=== PATIENT | female | born 1970 | race Caucasian/White ===

== ENCOUNTER 2024-08-19 10:43 | Outpatient (CLI) | payer OTHER, SELFPAY ==
--- NOTE | 2024-08-19 10:47 | MM_ITS ---
WS: [id number] SCREENING DIGITAL BREAST TOMOSYNTHESIS MAMMOGRAM WITH CAD HISTORY: SCREEN COMPARISON: 06/24/2014 Bilateral CC and MLO with tomosynthesis and synthetic mammography submitted. Computer aided detection analyzed. Breast composition: There are scattered areas of fibroglandular density. Focal areas of architectural distortion in the upper outer quadrant of the LEFT breast best seen on the MLO projection. I suspect this may be due to a poor compression. There is an additional area of focal globular asymmetry in th e upper outer quadrant of the RIGHT breast. Additional asymmetry noted in the RIGHT axillary tail. MM/MM scr tomosynthesis [id number] IMPRESSION: BI-RADS: 0 - Incomplete: Need additional imaging evaluation. FOLLOW UP: Need Additional Imaging RIGHT breast: Spot compression views (CC and MLO). True ML. Ultrasound to follo w if abnormality persists. Spot compression towards the RIGHT axilla in the MLO projection. LEFT breast: Spot compression views (CC and MLO). True ML. Ultrasound to follow if abnormality persists. Attempted better compression during spot imaging.
--- NOTE | 2024-08-19 10:49 | XR_ITS ---
WS: [id number] Exam: XR cervical spine 4-5V [id number] Date/Time of Exam: 08/19/2024 10:53 AM Reason For Exam: CHRONIC NECK PAIN GREATER THAN 3 MONTHS No fracture or dislocation. There is straightening. Degenerative disc thinning and spondylosis at the C5-6 level. Posterior elements are intact. Normal paraspinal soft tissues. The bony neural foramina appear to be patent. The odontoid appears normal. XR/XR cervical spine 4-5V [id number] IMPRESSION: 1. Degenerative changes at the C5-6 level and straightening. 2. No fracture or malalignment.
== END 2024-08-19 10:44 | disposition home or self-care (01) ==
LOC: RAD 10:45
PROVIDERS: PCP Family Medicine; Visit Provider Family Medicine
DX: Z12.31 Encounter for screening mammogram for malignant neoplasm of breast (principal); R92.323 Mammographic fibroglandular density, bilateral breasts; N64.89 Other specified disorders of breast; M50.322 Other cervical disc degeneration at C5-C6 level
CPT/HCPCS: 72050; 77063; 77067

== ENCOUNTER 2024-09-14 09:30 | Outpatient (CLI) | payer OTHER, SELFPAY ==
--- NOTE | 2024-09-14 09:44 | MM_ITS ---
WS: [id number] ADDITIONAL VIEWS BILATERAL MAMMOGRAM WITH DIGITAL BREAST TOMOSYNTHESIS. Bilateral breast ultrasound, limited HISTORY: Abnormal screening mammogram 08/19/2024. COMPARISON: None available. Spot compression views of the each breast in CC, MLO projections and true ML submitted with digital b reast tomosynthesis and SM. The asymmetries persist in the upper outer quadrants but become less apparent. The RIGHT axillary asy mmetry resolves with additional spot compression and therefore this is probably superimposed fibrogla ndular densities due to incomplete compression. Bilateral breast ultrasound, limited. Dense heterogeneous echotexture in the upper outer quadrants of each breast but greatest on the RIGHT . There is no area of shadowing or increased vascularity. No discrete mass is identified. MM/MM diag BI tomosynthesis [id number] IMPRESSION: BI-RADS: 2- Benign FOLLOW UP: 1 Year Follow-up
== END 2024-09-14 09:31 | disposition home or self-care (01) ==
PROVIDERS: PCP Family Medicine; Visit Provider Family Medicine
DX: R92.8 Other abnormal and inconclusive findings on diagnostic imaging of breast (principal); R92.333 Mammographic heterogeneous density, bilateral breasts
CPT/HCPCS: 76642; 77062; G0279

== ENCOUNTER → 2025-05-16 12:28 | Outpatient (BNVA) | payer OTHER, SELFPAY | PROVIDERS: PCP Family Medicine; Referring Provider Nurse Practitioner Psychiatric/Mental Health; Visit Provider Specialist | DX: G31.84 Mild cognitive impairment of uncertain or unknown etiology (principal); G43.711 Chronic migraine without aura, intractable, with status migrainosus | CPT/HCPCS: 36415; 82542; 83520; 84439; 84443; 85651 ==

== ENCOUNTER 2025-06-13 11:06 | Outpatient (CLI) | payer OTHER, SELFPAY ==
--- NOTE | 2025-06-13 12:15 | MR_ITS ---
WS: [id number] MRI HEAD WITHOUT CONTRAST TECHNIQUE: Sagittal T1, T2 axial, T2 axial FLAIR, axial and coronal T1 images, axial susceptibility weighted imaging, axial diffusion weighted images, and coronal T2 images were obtained. CLINICAL INFORMATION: G43.711 - Chronic migraine without aura, intractable, wit... COMPARISON: None. FINDINGS: No evidence of restricted diffusion to suggest acute ischemia. A few tiny periventricular lesions nonspecific in a patient of this age but can be seen with hypertension, diabetes, small vessel changes, migraine headaches, and less likely demyelinating disease. Moderate parenchymal volume loss. Normal posterior fossa. Normal vascular flow voids at the skull base. No extra- axial fluid collections. No evidence of mass or mass effect. Paranasal sinuses and mastoid air cells are well aerated. Mild mucosal thickening RIGHT mastoid air cells. Normal posterior nasopharynx. No hemosiderin. Normal optic chiasm and pituitary infundibulum. 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 MR/MR head wo con* [id number] IMPRESSION: 1. No evidence of restricted diffusion to suggest acute ischemia. 2. A few tiny periventricular lesions nonspecific in a patient of this age but can be seen with hypertension, diabetes, small vessel changes, migraine headac hes, and less likely demyelinating disease. Moderate parenchymal volume loss. 3. 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 4. No hemosiderin on the susceptibly weighted images.
== END 2025-06-13 11:07 | disposition home or self-care (01) ==
LOC: RAD 11:08
PROVIDERS: PCP Family Medicine; Visit Provider Specialist
DX: G43.711 Chronic migraine without aura, intractable, with status migrainosus (principal); G31.89 Other specified degenerative diseases of nervous system; R90.89 Other abnormal findings on diagnostic imaging of central nervous system
CPT/HCPCS: 70551